=== PATIENT | male | born 2000 | race Caucasian/White ===

== ENCOUNTER 2019-06-19 17:12 | Emergency (ER) | payer OTHER, SELFPAY ==
[2019-06-19 17:14] VITALS: BP 142/107; PULSE 63; RESP 16; TEMP 36.9; O2SAT 97; BMI 22.3
[2019-06-19 17:39] VITALS: BP 142/107; PULSE 63; RESP 15; TEMP 36.9; O2SAT 97
--- NOTE | 2019-06-19 17:57 | ED.DCSUM_ITS ---
History of Present Illness Chief Complaint: Cellulitis Narrative: Patient presenting due to concerns for cellulitis. Patient states that yesterday he was trying to get his cat out of the wall and it scratched him on his hands. His tetanus status is not up-to-date. He does not believe that he was bitten by the cat. Patient reports that today he started to develop some pain in his left axilla and then developed erythema streaking up his arm from his hand all the way to his armpit. He denies constitutional symptoms such as fever. Review of systems otherwise negative. Past Medical History - Allergies and Home Meds Allergies/Adverse Reactions: Allergies No Known Allergies Allergy (Verified 10/28/16 03:32) Primary Care Physician: Angel Mcpherson MD [Primary Care Provider] - Past Medical History: None Smoking Status: Never smoker Review of Systems General: Denies: Fever Eyes: Denies: Visual changes - bilaterally, Diplopia ENT: Denies: Rhinorrhea, Sore throat Cardiovascular: Denies: Chest pain, Palpitations Respiratory: Denies: Dyspnea, Cough, Dyspnea on exertion Gastrointestinal: Denies: Abdominal pain, Nausea, Vomiting, Diarrhea, Melena, Hematochezia Genitourinary: Denies: Dysuria, Hematuria, Frequency Musculoskeletal: Denies: Back pain, Extremity Pain Skin: Reports: Rash. Denies: Wounds Neurological: Denies: Headache, Weakness, Numbness Psych: Denies: Depression Endocrine: Denies: Polyuria Hematologic: Denies: Easy bleeding Allergy: Denies: Uticaria Physical Exam Vital Signs/Narrative: Vital Signs Temp Pulse Resp BP Pulse Ox 06/19/19 17:39 98.4 F 63 15 142/107 H 97 06/19/19 17:14 98.4 F 63 16 142/107 H 97 Inital Vital Signs reviewed: Yes General: Well nourished, Well developed, No Acute Distress Head: Normocephalic, Atraumatic Eyes: Perrl, EOMI ENT: Moist mucous membranes, No rhinorrhea Neck: Supple, Nontender Cardiovascular: Regular rate, Regular rhythm, No murmurs Respiratory: No distress, CTA bilaterally, Chest nontender Abdomen: Soft, Nontender, Nondistended, Normal bowel sounds Back: Nontender, Normal Inspection Extremities: - - Examination of the patient's upper extremities shows multiple scratch wounds of the hands bilaterally. On the left hand there is evidence of erythema over the palmar and dorsal surface of the hyperthenar portion of the hand with scratch wounds underlying. There is induration but no fluctuance. There is lymphangitic streaking going all the way up to the patient's axilla on that side. Minimal tenderness to palpation. Skin: Normal color, No rash Neurological: Alert, Oriented x3, Cranial nerves II-XII grossly intact, Normal S trength, Normal Sensation Psychological: Normal affect, Normal Mood Diagnostic/Tx/Re-eval - Medical Decision Making Patient presented with lymphadenitis from a cat scratch. His tetanus status was updated. I reviewed the literature which he recommends a course of azithromycin if the patient is tolerant of this. First dose given in the emergency department, patient will be started on a course of azithromycin for the next 4 days and was recommended signs and symptoms which to return. ED Disposition - Plan for ED Patient: Disposition: Home or Assisted Living Diagnosis: Lymphadenitis, Cat scratch Instructions: CAT BITE OR SCRATCH (Child) Prescriptions: Azithromycin [Zithromax] 250 mg PO DAILY #4 tab Transmission Status: Pending to [facility]/pharmacy #[id number] Referrals: Angel Mcpherson MD [Primary Care Provider] - 3-5 Days
[2019-06-19] MEDS: Diphth,Pertuss(Acell),Tet Vac 0.5 ML Vial IM (18:21)
[2019-06-19] MEDS: Azithromycin 250 MG Tablet 500 MG PO (18:22)
[2019-06-19 18:33] VITALS: BP 141/75; PULSE 64; RESP 17; O2SAT 99
== END 2019-06-19 18:37 | disposition home or self-care (01) ==
LOC: ED 18:07
PROVIDERS: Emergency Provider Emergency Medicine; Family Provider Pediatrics; PCP Pediatrics
DX: S60.512A Abrasion of left hand, initial encounter (principal); S60.511A Abrasion of right hand, initial encounter; I88.9 Nonspecific lymphadenitis, unspecified; W55.03XA Scratched by cat, initial encounter; Y93.9 Activity, unspecified; Y92.9 Unspecified place or not applicable; Z23 Encounter for immunization
CPT/HCPCS: 90471; 90715; 99283